=== PATIENT | female | born 1985 | race Caucasian/White ===

== ENCOUNTER 2019-10-25 09:03 | Outpatient (CLI) | payer OTHER, SELFPAY | END 2019-10-25 21:00 | disposition home or self-care (01) | LOC: SLB 09:03 | PROVIDERS: ATTEND Specialist | DX: Z11.59 Encounter for screening for other viral diseases (principal) | CPT/HCPCS: C9803; U0003 ==

== ENCOUNTER 2019-10-28 11:36 | Inpatient (IN) | payer OTHER, SELFPAY ==
[~2019-10-28] VITALS: Ht 167.6 cm; Wt 123.8 kg
[2019-10-28] MEDS: OXYTOCIN/0.9 % SODIUM CHLORIDE 1,000 ML IV SCH (04:30)
[2019-10-28] MEDS ORDERED: OXYTOCIN/0.9 % SODIUM CHLORIDE 1,000 ML IV SCH (11:46)
[2019-10-28] MEDS ORDERED: MORPHINE 4 MG/ML INJ. SYRINGE IVP PRN (12:00)
[2019-10-28] MEDS ORDERED: TERBUTALINE SULFATE 1 MG/ML VIAL SUBCUT ONE (12:00)
[2019-10-28] MEDS ORDERED: DINOPROSTONE 10 MG SUPP VG ONE (12:00)
[2019-10-28] MEDS: LR 1,000 ML IV SCH ×2 (12:40→14:20)
[2019-10-28 12:46] LABS: BASOPHILS # (AUTO) 0.1 K/uL (0.0-0.2); BASOPHILS % (AUTO) 0.6 % (0.0-2.0); HEMATOCRIT 34.5 % (36-48); HEMOGLOBIN 11.2 g/dL (12.0-16.0); LYMPHOCYTES # (AUTO) 1.4 K/uL (1.0-5.5); LYMPHOCYTES % (AUTO) 15.5 % (20.5-51.5); MEAN CORPUSCULAR HEMOGLOBIN 28 pg (27-31); MEAN CORPUSCULAR HGB CONC 33 % (32-36); MEAN CORPUSCULAR VOLUME 85 fL (79.0-98.0); MONOCYTES # (AUTO) 0.3 K/uL (0.0-1.0); MONOCYTES % (AUTO) 3.3 % (1.7-9.3); NEUTROPHILS # (AUTO) 7.6 K/uL (1.8-7.7); NEUTROPHILS % (AUTO) 80.6 % (40.0-70.0); PLATELET COUNT (AUTO) 231 K/uL (130-430); RED BLOOD CELL COUNT(AUTO) 4.06 MIL/uL (4.2-6.2); RED CELL DISTRIBUTION WIDTH 15.4 % (9.0-15.0); WHITE BLOOD COUNT (AUTO) 9.4 K/uL (4.8-10.8)
[2019-10-28] MEDS ORDERED: MORPHINE SULFATE 10 MG/ML VIAL ONE (12:59)
[2019-10-28 13:25] VITALS: BP_SYST 132
[2019-10-28] MEDS ORDERED: fentaNYL CITRATE/PF 100 MCG/2 ML AMP ONE (14:48)
[2019-10-28] MEDS ORDERED: ROPIVACAINE HCL/PF 0.2% 200 ML ONE (14:49)
[2019-10-28] MEDS ORDERED: TERBUTALINE SULFATE 1 MG/ML VIAL ONE (16:14)
[2019-10-28] MEDS ORDERED: LR 500 ML IV ONE (16:28)
[2019-10-28] MEDS ORDERED: FENT2mCg/mL-ROPIVA0.2%/NS EPID 200 ML EP SCH (16:30)
[2019-10-28] MEDS ORDERED: ePHEDrine sulfate 50 MG/ML VIAL IVP ONE ×2 (17:15→18:01)
[2019-10-28] MEDS ORDERED: CEFAZOLIN 2 GM IVPB PREMIX 50 ML IV ONE ×2 (17:45→18:06)
[2019-10-28] MEDS ORDERED: LR 1,000 ML IV.SOLN IV ONE (18:01)
[2019-10-28] MEDS ORDERED: NS IRRIG SOLN 1000 ML IR ONE (18:01)
[2019-10-28] MEDS ORDERED: METHYLERGONOVINE MALEATE 0.2 MG/ML AMP ONE (18:28)
[2019-10-28] MEDS ORDERED: NALOXONE HCL 0.4 MG/ML AMP (NARCAN) IVP PRN ×3 (18:45→20:15)
[2019-10-28] MEDS ORDERED: ONDANSETRON HCL 4 MG/2 ML VIAL IVP PRN (18:45)
[2019-10-28] MEDS ORDERED: fentaNYL CITRATE/PF 100 MCG/2 ML AMP IVP PRN ×2 (18:45)
[2019-10-28] MEDS ORDERED: NALBUPHINE HCL 10 MG/ML AMP IVP PRN (18:45)
[2019-10-28] MEDS ORDERED: DIPHENHYDRAMINE INJ 50 MG/ML VIAL IVP PRN (18:45)
[2019-10-28] MEDS ORDERED: MORPHINE SULFATE 10MG/10ML PF AMP EP SCH (18:45)
[2019-10-28] MEDS ORDERED: KETOROLAC TROMETHAMINE 60 MG/2 ML VIAL IM PRN (18:45)
[2019-10-28 19:03] VITALS: BP_SYST 102
[2019-10-28] MEDS ORDERED: LR 1,000 ML IV SCH (20:08)
[2019-10-28] MEDS ORDERED: OXYCODONE/ACETAMINOPHEN *10*mg/325 mg TABLET PO PRN (20:15)
[2019-10-28] MEDS ORDERED: SENNOSIDES/DOCUSATE SODIUM 1 TAB TABLET(SENOKOT-S) PO PRN (20:15)
[2019-10-28] MEDS ORDERED: MEASLES,MUMPS&RUBELLA VACC/PF 12500 UNIT/0.5 ML VIAL SUBQ PRN (20:15)
[2019-10-28] MEDS ORDERED: LANOLIN 7 GM OINT. TP PRN (20:15)
[2019-10-28] MEDS ORDERED: ANUSOL 1 EA SUPP.RECT (PREPARATION H) RC PRN (20:15)
[2019-10-28] MEDS ORDERED: OXYCODONE/ACETAMINOPHEN 5-325 TABLET PO PRN (20:15)
[2019-10-28] MEDS ORDERED: TEMAZEPAM 15 MG CAPSULE PO PRN (20:15)
[2019-10-28] MEDS ORDERED: RHO(D) IMMUNE GLOBULIN/MALTOSE 1500 UNITS/1.3 ML (WINHRO) IM PRN (20:15)
[2019-10-28] MEDS ORDERED: DIPH-TET-PERTUS Vaccine 0.5 ML VIAL (ADACEL) I.M. PRN (20:15)
[2019-10-28] MEDS ORDERED: HYDROcodone/ACETAMIN 5-325 MG TAB (NORCO/ VICODIN) PO PRN (20:15)
[2019-10-28] MEDS ORDERED: BISACODYL 10 MG/SUPPOSITORY RC PRN (20:15)
[2019-10-28] MEDS: CEFAZOLIN 1 GM IVPB PREMIX 50 ML IV SCH (23:55)
[2019-10-29] MEDS: KETOROLAC TROMETHAMINE 30 MG VIAL IVP SCH ×3 (05:57→18:38)
[2019-10-29] MEDS: CEFAZOLIN 1 GM IVPB PREMIX 50 ML IV SCH ×2 (05:58→12:44)
[2019-10-29 07:34] LABS: BASOPHILS % (AUTO) 0.4 % (0.0-2.0); HEMATOCRIT 29.8 % (36-48); HEMOGLOBIN 9.8 g/dL (12.0-16.0); LYMPHOCYTES # (AUTO) 1.2 K/uL (1.0-5.5); LYMPHOCYTES % (AUTO) 10.9 % (20.5-51.5); MEAN CORPUSCULAR HEMOGLOBIN 28 pg (27-31); MEAN CORPUSCULAR HGB CONC 33 % (32-36); MEAN CORPUSCULAR VOLUME 86 fL (79.0-98.0); MONOCYTES # (AUTO) 0.5 K/uL (0.0-1.0); MONOCYTES % (AUTO) 4.5 % (1.7-9.3); NEUTROPHILS # (AUTO) 9.6 K/uL (1.8-7.7); NEUTROPHILS % (AUTO) 84.2 % (40.0-70.0); PLATELET COUNT (AUTO) 196 K/uL (130-430); RED BLOOD CELL COUNT(AUTO) 3.46 MIL/uL (4.2-6.2); RED CELL DISTRIBUTION WIDTH 15.4 % (9.0-15.0); WHITE BLOOD COUNT (AUTO) 11.4 K/uL (4.8-10.8)
[2019-10-29] MEDS: SIMETHICONE 80 MG TAB.CHEW PO PRN ×2 (12:42→18:37)
[2019-10-29] MEDS: OXYTOCIN/0.9 % SODIUM CHLORIDE 1,000 ML IV SCH (13:21)
[2019-10-29] MEDS ORDERED: BUPIVACAINE /PF 0.5% 30 ML VIAL EP ONE (15:19)
[2019-10-29] MEDS: DOCUSATE SODIUM 100 MG CAPSULE PO PRN ×2 (18:38→23:57)
[2019-10-29] MEDS: IBUPROFEN 600 MG TABLET PO SCH (23:54)
[2019-10-30] MEDS: IBUPROFEN 600 MG TABLET PO SCH ×2 (06:15→12:33)
[2019-10-30] MEDS: SIMETHICONE 80 MG TAB.CHEW PO PRN ×2 (06:15→12:33)
[2019-10-30] MEDS: DOCUSATE SODIUM 100 MG CAPSULE PO PRN (06:16)
[2019-10-30] MEDS ORDERED: ePHEDrine sulfate 50 MG/ML VIAL IVP ONE (17:24)
== END 2019-10-30 17:25 | disposition home or self-care (01) | DRG 787 ==
LOC: SPU 11:36
PROVIDERS: ADMIT Specialist; ATTEND Specialist
PROC: 3E0R3BZ Introduction of Anesthetic Agent into Spinal Canal, Percutaneous Approach (ICD-10-PCS; 2019-10-28)
PROC: 00HU33Z Insertion of Infusion Device into Spinal Canal, Percutaneous Approach (ICD-10-PCS; 2019-10-28)
PROC: 10D00Z1 Extraction of Products of Conception, Low, Open Approach (ICD-10-PCS; principal; 2019-10-28 18:00)
DX: O99.214 Obesity complicating childbirth (principal); O41.03X0 Oligohydramnios, third trimester, not applicable or unspecified; E66.01 Morbid (severe) obesity due to excess calories; O36.8130 Decreased fetal movements, third trimester, not applicable or unspecified; O76 Abnormality in fetal heart rate and rhythm complicating labor and delivery; Z3A.39 39 weeks gestation of pregnancy; Z37.0 Single live birth
CPT/HCPCS: 36415; 85025; 86592; 86886; 86900; 86901; 94760; J0690; J1885; J2210; J2270; J2405; J2590; J3010; J3105; J3490; J7120